=== PATIENT | male | born 1990 | race Caucasian/White ===

== ENCOUNTER 2016-07-14 11:14 | Emergency (ER) | payer OTHER ==
--- NOTE | 2016-07-14 12:23 | DIAGNOSTIC IMAGING REPORT ---
PROCEDURE: XR FOREARM - RIGHT INDICATION: FOREIGN BODY TECHNIQUE: Two views of the right forearm. COMPARISON: None. FINDINGS: 12 ml linear foreign body in the mid forearm posteromedially. Bones are unremarkable. IMPRESSION: 1. Right mid forearm foreign body
--- NOTE | 2016-07-14 12:56 | ED CLINICAL REPORT ---
Clinical Report - Physicians/Mid Levels [facility] [address] [place] [address] 07/14/2016 11:17 [id number] Time Seen: 11:40. Arrived- By private vehicle. Historian- patient. HISTORY OF PRESENT ILLNESS Chief Complaint: Injury to right forearm. The injury happened just prior to arrival. Occurred at work. The patient sustained a puncture wound from glass. Patient is experiencing mild pain. No other injury. REVIEW OF SYSTEMS A single glass foreign body is suspected in the right forearm. No swelling, tingling, numbness, weakness or chills. No fever, sweats, calf pain, chest pain or cough. No difficulty breathing, pedal edema, palpitations, abdominal pain or constipation. No diarrhea, nausea, vomiting or urinary problems. All systems otherwise negative, except as recorded above. PAST HISTORY Tetanus immunization status is up-to-date. SOCIAL HISTORY Current every day light tobacco smoker (cigarette)- less than 1/2 a pack per day. Occasional alcohol use. History of occasional drug use: marijuana. FAMILY HISTORY No significant family medical history. ADDITIONAL NOTES The nursing notes have been reviewed. PHYSICAL EXAM Vital Signs: 07/14/2016 11:29 BP: 125/80. HR: 73. RR: 20. O2 saturation: 100%. Temp: 98.5 F. Pain level now: 1/10. Have been reviewed. Head: Head atraumatic. Eyes: Pupils equal, round and reactive to light. ENT: Pharynx normal. Neck: Neck supple. CVS: Heart sounds normal. Respiratory: Breath sounds normal. Abdomen: No visible injury. Back: Normal inspection. Skin: Skin warm and dry. Extremities: Right forearm: single puncture wound and suspected foreign body located in the mid ulnar aspect of forearm. Neurovascular intact distally. Extremities otherwise negative. Neuro, Vascular and Tendons: Vascular status intact. Sensation intact. Motor intact. Tendon function intact. Neuro: No motor deficit. No sensory deficit. LABS, X-RAYS, AND EKG Rt Forearm X-ray: (PROCEDURE: XR FOREARM - RIGHT INDICATION: FOREIGN BODY TECHNIQUE: Two views of the right forearm. COMPARISON: None. FINDINGS: 12 ml linear foreign body in the mid forearm posteromedially. Bones are unremarkable. IMPRESSION: 1. Right mid forearm foreign body). The X-rays were interpreted by the radiologist and contemporaneously by me. PROGRESS AND PROCEDURES Course of Care: Patient is stable. Consult obtained from orthopedics. Dr Cristin maynard suggests that the patient be treated with a single dose of Ceftriaxone. Case discussed. Phone consult only. Patient/family counseled. Old medical records ordered. Other: (L&I form completed). Disposition: Discharged. Condition: stable. CLINICAL IMPRESSION Single deep puncture wound to the right forearm. Retained superficial glass soft tissue foreign body to the right forearm. INSTRUCTIONS Protect wound and keep wound area clean. You may wash wounds briefly, then dry. Apply neosporin twice daily. Do not work until released. Warnings: COMPLICATIONS: Complications from this condition include: possible infection, possible foreign body remaining in the wound, possible injury to a nerve, possible injury to a tendon and possible injury to a ligament. Future problems may include infection, scarring, loss of function, pain and deformity. INFECTION: Watch for signs of infection (increasing heat and redness, pus-like drainage, swelling, or increased pain). Return or see your doctor if these signs occur. GENERAL WARNINGS: Return or contact your physician immediately if your condition worsens or changes unexpectedly, if not improving as expected, or if other problems arise. Understanding of the discharge instructions verbalized by patient. [facility] , [address] [facility] [address] Follow up Sunday in three days. Call for an appointment. (Electronically signed by Vicente Whelan MD 07/14/2016 21:11)
--- NOTE | 2016-07-14 12:56 | ED NURSING NOTES ---
Clinical Report - Nurses [facility] [address] [place] [address] 07/14/2016 11:17 Patient: CARLOS ENRIQUE OAKES TRIAGE Triage time 11:29. Acuity: LEVEL 3. Chief Complaint: INJURY TO THE RIGHT FOREARM. Alert. No acute distress. SEPSIS SCREEN: Sepsis Screen: negative. Negative (no infection suspected/documented). KEYON COMA SCORE: [place] Coma Scale: 11; best verbal response- oriented x 4 (5); best motor response- obeys commands (6). --11:33 Deepti Martinez R.N. 11:29 07/14/16. BP: 125/80. HR: 73. RR: 20. O2 saturation: 100%. Temp: 98.5 F (oral). Pain level now: 03/21. --11:33 Deepti Martinez R.N. 11:29 07/14/16. BP: 125/80. HR: 73. RR: 20. O2 saturation: 100%. Temp: 98.5 F (oral). Pain level now: 03/21. --11:33 Deepti Martinez R.N. Weight: 81.6 kg stated. Height/Length: 72 inches Per Patient. BMI: 24.4. --11:32 Deepti Martinez R.N. Medications None. --11:30 Deepti Martinez R.N. Medication/allergy information source: the patient. --11:33 Deepti Martinez R.N. Allergies None. --11:31 Deepti Martinez R.N. History Arrived by private vehicle. Historian: patient. No primary care physician. This occurred just prior to arrival. Occurred at work. Mechanism of injury: (piece of windshield shard in forearm). 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 PAST MEDICAL HX: Tetanus status: up-to-date. SOCIAL HX: Light tobacco smoker (cigarette)- less than 1/2 a pack per day. Occasional alcohol use. History of drug use: marijuana. Recently used drugs yesterday. FALL RISK ASSESSMENT: Fall risk assessment completed. No fall risk identified. NUTRITIONAL RISK ASSESSMENT: The nutritional risk assessment revealed no deficiencies. FUNCTIONAL ASSESSMENT: Functional assessment: no impairments noted. LEARNING NEEDS ASSESSMENT: The learning needs assessment revealed no barriers. SKIN INTEGRITY ASSESSMENT: Skin integrity risk assessment completed. No skin integrity risk identified. --11:33 Deepti Martinez R.N. Interventions ID band on patient. To room. --11:33 Deepti Martinez R.N. PHYSICAL ASSESSMENT Ambulatory to room. GENERAL / NEURO / PSYCH: Oriented X 4. Alert. Appears in no acute distress. Appears anxious. EXTREMITIES: Capillary refill is less than 2 seconds in the extremities. Extremity pulses are within normal limits. Extremities exhibit normal ROM. Neuro-vascular status intact to the extremity. Right forearm: visualized foreign body. SKIN: Skin is warm and dry. ( piece of glass in forearm.). --11:34 Deepti Martinez R.N. NURSING PROGRESS NOTES Extremity elevated. Two patient identifiers checked. Call light placed in reach. Side rails up x 1. Bed placed in lowest position. Brakes of bed on. Patient ready for evaluation. --11:34 Deepti Martinez R.N. 12:38 07/14/2016 Ceftriaxone IM 1 gm given. Given in the right gluteus mely. --12:38 Deepti Martinez R.N. DISPOSITION / DISCHARGE 13:41 07/14/16. Condition at departure: unchanged. No learning barriers present. Discharge instructions provided and reviewed with the patient. Reviewed medication(s). Patient verbalized understanding. Written instructions provided in [place]adian. The patient was discharged home. He left the Emergency Department ambulatory and via private vehicle. Patient driving. Medication list reviewed and validated. --13:41 Deepti Martinez R.N. 13:38 07/14/16. BP: 138/66 taken on the left arm, while sitting. HR: 60. RR: 18. O2 saturation: 100%. Temp: deferred. Pain level now: 03/21. 11:29 07/14/16. BP: 125/80. HR: 73. RR: 20. O2 saturation: 100%. Temp: 98.5 F (oral). Pain level now: 03/21. --13:41 Deepti Martinez R.N. Departure time: 1340. --13:41 Deepti Martinez R.N. Locked/Released at 07/14/2016 13:49 by Deepti Martinez R.N.
--- NOTE | 2016-07-14 12:56 | ED NURSING NOTES ---
Clinical Report - Nurses [facility] [address] [place] [address] 07/14/2016 11:17 Patient: CARLOS ENRIQUE OAKES TRIAGE Triage time 11:29. Acuity: LEVEL 3. Chief Complaint: INJURY TO THE RIGHT FOREARM. Alert. No acute distress. SEPSIS SCREEN: Sepsis Screen: negative. Negative (no infection suspected/documented). KEYON COMA SCORE: [place] Coma Scale: 11; best verbal response- oriented x 4 (5); best motor response- obeys commands (6). --11:33 Deepti Martinez R.N. 11:29 07/14/16. BP: 125/80. HR: 73. RR: 20. O2 saturation: 100%. Temp: 98.5 F (oral). Pain level now: 03/21. --11:33 Deepti Martinez R.N. 11:29 07/14/16. BP: 125/80. HR: 73. RR: 20. O2 saturation: 100%. Temp: 98.5 F (oral). Pain level now: 03/21. --11:33 Deepti Martinez R.N. Weight: 81.6 kg stated. Height/Length: 72 inches Per Patient. BMI: 24.4. --11:32 Deepti Martinez R.N. Medications None. --11:30 Deepti Martinez R.N. Medication/allergy information source: the patient. --11:33 Deepti Martinez R.N. Allergies None. --11:31 Deepti Martinez R.N. History Arrived by private vehicle. Historian: patient. No primary care physician. This occurred just prior to arrival. Occurred at work. Mechanism of injury: (piece of windshield shard in forearm). 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 PAST MEDICAL HX: Tetanus status: up-to-date. SOCIAL HX: Light tobacco smoker (cigarette)- less than 1/2 a pack per day. Occasional alcohol use. History of drug use: marijuana. Recently used drugs yesterday. FALL RISK ASSESSMENT: Fall risk assessment completed. No fall risk identified. NUTRITIONAL RISK ASSESSMENT: The nutritional risk assessment revealed no deficiencies. FUNCTIONAL ASSESSMENT: Functional assessment: no impairments noted. LEARNING NEEDS ASSESSMENT: The learning needs assessment revealed no barriers. SKIN INTEGRITY ASSESSMENT: Skin integrity risk assessment completed. No skin integrity risk identified. --11:33 Deepti Martinez R.N. Interventions ID band on patient. To room. --11:33 Deepti Martinez R.N. PHYSICAL ASSESSMENT Ambulatory to room. GENERAL / NEURO / PSYCH: Oriented X 4. Alert. Appears in no acute distress. Appears anxious. EXTREMITIES: Capillary refill is less than 2 seconds in the extremities. Extremity pulses are within normal limits. Extremities exhibit normal ROM. Neuro-vascular status intact to the extremity. Right forearm: visualized foreign body. SKIN: Skin is warm and dry. ( piece of glass in forearm.). --11:34 Deepti Martinez R.N. NURSING PROGRESS NOTES Extremity elevated. Two patient identifiers checked. Call light placed in reach. Side rails up x 1. Bed placed in lowest position. Brakes of bed on. Patient ready for evaluation. --11:34 Deepti Martinez R.N. 12:38 07/14/2016 Ceftriaxone IM 1 gm given. Given in the right gluteus mely. --12:38 Deepti Martinez R.N. DISPOSITION / DISCHARGE 13:41 07/14/16. Condition at departure: unchanged. No learning barriers present. Discharge instructions provided and reviewed with the patient. Reviewed medication(s). Patient verbalized understanding. Written instructions provided in [place]. The patient was discharged home. He left the Emergency Department ambulatory and via private vehicle. Patient driving. Medication list reviewed and validated. --13:41 Deepti Martinez R.N. 13:38 07/14/16. BP: 138/66 taken on the left arm, while sitting. HR: 60. RR: 18. O2 saturation: 100%. Temp: deferred. Pain level now: 03/21. 11:29 07/14/16. BP: 125/80. HR: 73. RR: 20. O2 saturation: 100%. Temp: 98.5 F (oral). Pain level now: 03/21. --13:41 Deepti Martinez R.N. Departure time: 1340. --13:41 Deepti Martinez R.N. Locked/Released at 07/14/2016 13:49 by Deepti Martinez R.N.
--- NOTE | 2016-07-14 12:56 | ED ORDER SUMMARY ---
..... Patient: CARLOS ENRIQUE OAKES OrderSheet [facility] VisitID: [id number] [place] [address] 26y, M Registration Date/Time: 07/14/2016 ORDER SHEET Weight: 81.6 kg (stated) Allergies: None GENERAL ORDERS: Forearm Right Urgent (11:41 07/14/2016 Fred BRAUN) (Ack 11:46 Cora) (13:49 SRoberts R.N.) MEDICATION ORDERS: Ceftriaxone IM 1 gm (NOW) (12:22 07/14/2016 Fred BRAUN) (Ack 12:29 SRoberts R.N.) (12:38 SRoberts R.N.) IV FLUIDS: ORDER SHEET NOTES: [Electronically signed by Deepti Martinez R.N. (13:49 07/14/2016)] [Electronically signed by Vicente Whelan MD (21:11 07/14/2016)] [Electronically locked/signed by Deepti Martinez R.N. (13:49 07/14/2016)]
--- NOTE | 2016-07-14 12:56 | ED CLINICAL REPORT ---
Clinical Report - Physicians/Mid Levels [facility] [address] [place] [address] 07/14/2016 11:17 [id number] Time Seen: 11:40. Arrived- By private vehicle. Historian- patient. HISTORY OF PRESENT ILLNESS Chief Complaint: Injury to right forearm. The injury happened just prior to arrival. Occurred at work. The patient sustained a puncture wound from glass. Patient is experiencing mild pain. No other injury. REVIEW OF SYSTEMS A single glass foreign body is suspected in the right forearm. No swelling, tingling, numbness, weakness or chills. No fever, sweats, calf pain, chest pain or cough. No difficulty breathing, pedal edema, palpitations, abdominal pain or constipation. No diarrhea, nausea, vomiting or urinary problems. All systems otherwise negative, except as recorded above. PAST HISTORY Tetanus immunization status is up-to-date. SOCIAL HISTORY Current every day light tobacco smoker (cigarette)- less than 1/2 a pack per day. Occasional alcohol use. History of occasional drug use: marijuana. FAMILY HISTORY No significant family medical history. ADDITIONAL NOTES The nursing notes have been reviewed. PHYSICAL EXAM Vital Signs: 07/14/2016 11:29 BP: 125/80. HR: 73. RR: 20. O2 saturation: 100%. Temp: 98.5 F. Pain level now: 1/10. Have been reviewed. Head: Head atraumatic. Eyes: Pupils equal, round and reactive to light. ENT: Pharynx normal. Neck: Neck supple. CVS: Heart sounds normal. Respiratory: Breath sounds normal. Abdomen: No visible injury. Back: Normal inspection. Skin: Skin warm and dry. Extremities: Right forearm: single puncture wound and suspected foreign body located in the mid ulnar aspect of forearm. Neurovascular intact distally. Extremities otherwise negative. Neuro, Vascular and Tendons: Vascular status intact. Sensation intact. Motor intact. Tendon function intact. Neuro: No motor deficit. No sensory deficit. LABS, X-RAYS, AND EKG Rt Forearm X-ray: (PROCEDURE: XR FOREARM - RIGHT INDICATION: FOREIGN BODY TECHNIQUE: Two views of the right forearm. COMPARISON: None. FINDINGS: 12 ml linear foreign body in the mid forearm posteromedially. Bones are unremarkable. IMPRESSION: 1. Right mid forearm foreign body). The X-rays were interpreted by the radiologist and contemporaneously by me. PROGRESS AND PROCEDURES Course of Care: Patient is stable. Consult obtained from orthopedics. Dr Cristin maynard suggests that the patient be treated with a single dose of Ceftriaxone. Case discussed. Phone consult only. Patient/family counseled. Old medical records ordered. Other: (L&I form completed). Disposition: Discharged. Condition: stable. CLINICAL IMPRESSION Single deep puncture wound to the right forearm. Retained superficial glass soft tissue foreign body to the right forearm. INSTRUCTIONS Protect wound and keep wound area clean. You may wash wounds briefly, then dry. Apply neosporin twice daily. Do not work until released. Warnings: COMPLICATIONS: Complications from this condition include: possible infection, possible foreign body remaining in the wound, possible injury to a nerve, possible injury to a tendon and possible injury to a ligament. Future problems may include infection, scarring, loss of function, pain and deformity. INFECTION: Watch for signs of infection (increasing heat and redness, pus-like drainage, swelling, or increased pain). Return or see your doctor if these signs occur. GENERAL WARNINGS: Return or contact your physician immediately if your condition worsens or changes unexpectedly, if not improving as expected, or if other problems arise. Understanding of the discharge instructions verbalized by patient. [facility] , [address] [facility] [address] Follow up Sunday in three days. Call for an appointment. (Electronically signed by Vicente Whelan MD 07/14/2016 21:11)
--- NOTE | 2016-07-14 12:56 | ED ORDER SUMMARY ---
..... Patient: CARLOS ENRIQUE OAKES OrderSheet [facility] VisitID: [id number] [place] [address] 26y, M Registration Date/Time: 07/14/2016 ORDER SHEET Weight: 81.6 kg (stated) Allergies: None GENERAL ORDERS: Forearm Right Urgent (11:41 07/14/2016 Fred BRAUN) (Ack 11:46 Cora) (13:49 SRoberts R.N.) MEDICATION ORDERS: Ceftriaxone IM 1 gm (NOW) (12:22 07/14/2016 Fred BRAUN) (Ack 12:29 SRoberts R.N.) (12:38 SRoberts R.N.) IV FLUIDS: ORDER SHEET NOTES: [Electronically signed by Deepti Martinez R.N. (13:49 07/14/2016)] [Electronically signed by Vicente Whelan MD (21:11 07/14/2016)] [Electronically locked/signed by Deepti Martinez R.N. (13:49 07/14/2016)]
--- NOTE | 2016-07-14 21:11 | ED MED RECONCILIATION SUMMARY ---
Patient: CARLOS ENRIQUE OAKES Medication Reconciliation Report [facility] VisitID: [id number] [address] [place] [address] 26y, M Registration Date/Time: 07/14/2016 Weight: 81.6 kg Height/Length: 72 in. BMI: 24.4 ALLERGIES: None The patient's Home Medications are listed below: NONE. The source(s) of the original Home Medication information: patient The following Medications were given to the patient in the Emergency Department: Ceftriaxone [IM] IM 1 gm, administered: 07/14/2016 12:38:00 PM The following Medications were prescribed to the patient: None.
--- NOTE | 2016-07-14 21:11 | ED MAR SUMMARY ---
..... Medication Administration Record [facility] [address] [place] [address] Patient: CARLOS ENIRQUE OAKES Visit ID: [id number] 26y, M Weight: 81.6 kg Height/Length: 72 in BMI: 24.4 ALLERGIES: None Given 12:38 07/14/2016 Deepti Martinez R.N. Medication Administered: CEFTRIAXONE [IM], Dose: 1 gm IM. Medication Ordered: Ceftriaxone IM 1 gm (NOW).
--- NOTE | 2016-07-14 21:11 | ED MED RECONCILIATION SUMMARY ---
Patient: CARLOS ENRIQUE OAKES Medication Reconciliation Report [facility] VisitID: [id number] [address] [place] [address] 26y, M Registration Date/Time: 07/14/2016 Weight: 81.6 kg Height/Length: 72 in. BMI: 24.4 ALLERGIES: None The patient's Home Medications are listed below: NONE. The source(s) of the original Home Medication information: patient The following Medications were given to the patient in the Emergency Department: Ceftriaxone [IM] IM 1 gm, administered: 07/14/2016 12:38:00 PM The following Medications were prescribed to the patient: None.
--- NOTE | 2016-07-14 21:11 | ED MAR SUMMARY ---
..... Medication Administration Record [facility] [address] [place] [address] Patient: CARLOS ENRIQUE OAKES Visit ID: [id number] 26y, M Weight: 81.6 kg Height/Length: 72 in BMI: 24.4 ALLERGIES: None Given 12:38 07/14/2016 Deepti Martinez R.N. Medication Administered: CEFTRIAXONE [IM], Dose: 1 gm IM. Medication Ordered: Ceftriaxone IM 1 gm (NOW).
--- NOTE | 2016-07-14 21:11 | ED DISCHARGE INSTRUCTIONS ---
Patient: CARLOS ENRIQUE OAKES General Instructions [facility] VisitID: [id number] [address] [place] [address] 26y, M Registration Date/Time: 07/14/2016 Single deep puncture wound to the right forearm. Retained superficial glass soft tissue foreign body to the right forearm. INSTRUCTIONS Protect wound and keep wound area clean. You may wash wounds briefly, then dry. Apply neosporin twice daily. Do not work until released. Warnings: COMPLICATIONS: Complications from this condition include: possible infection, possible foreign body remaining in the wound, possible injury to a nerve, possible injury to a tendon and possible injury to a ligament. Future problems may include infection, scarring, loss of function, pain and deformity. INFECTION: Watch for signs of infection (increasing heat and redness, pus-like drainage, swelling, or increased pain). Return or see your doctor if these signs occur. GENERAL WARNINGS: Return or contact your physician immediately if your condition worsens or changes unexpectedly, if not improving as expected, or if other problems arise. Understanding of the discharge instructions verbalized by patient. Follow-up with: [facility], , [address], , [place], [id number] Follow up Sunday in three days. Call for an appointment. ADDITIONAL INFORMATION Puncture Wound (General) A puncture wound is a hole through the skin. Bacteria, dirt and debris can be drawn into this wound, increasing the risk of infection. However, antibiotics are usually not prescribed for this injury unless signs of infection are already present. Therefore, it is important to observe the wound closely for the signs of infection listed below. Home Care: If your wound is on an arm, hand, leg, or foot, keep that part raised during the first 48 hours to reduce swelling and pain. Keep the wound clean and dry. If a bandage was applied and it becomes wet or dirty, replace it. Otherwise, leave it in place for the next 24 hours. You may use acetaminophen (Tylenol) or ibuprofen (Motrin, Advil) to control pain, unless another medicine was prescribed. [NOTE: If you have chronic liver or kidney disease or ever had a stomach ulcer or GI bleeding, talk with your doctor before using these medicines.] You may shower as usual. However, do not soak the area in water (no baths or swimming) during the first 48 hours. Follow Up: Most puncture wounds heal within 10 days. However, an infection may sometimes occur despite proper treatment. If small particles were drawn into the puncture wound (such as fragments of cloth, rubber, wood or dirt), an infection may occur. These fragments are very hard to find during the first exam since it is not possible to get a good look inside a puncture wound and they do not show on an X-ray. Antibiotics and a minor surgical procedure to find and remove the foreign object will be needed if this happens. Therefore, check the wound daily for the warning signs listed below. Get Prompt Medical Attention if any of the following occur: SIGNS OF INFECTION: Increasing pain in the wound Redness, swelling, pus or red lines coming from the wound Fever of 100.4F (38C) or higher, or as directed by your healthcare provider Foreign ObjectUnder The Skin, Not Removed You may have a particle under your skin whichcould notbe found. Very small particles that remain under the skin usually cause no problem and need no further treatment. Sometimes they work their way to the surface on their own. If you see this happening, you can remove any particles with a tweezers. Home care The following guidelines will help you care for your wound at home: Keep the wound clean and dry. If a bandage was applied and it becomes wet or dirty, replace it. Otherwise, leave it in place for the first 24 hours, then change it once a day or as directed. If sutures were used, clean the wound daily: After removing the bandage, wash the area with soap and water. After cleaning, apply a thin layer of antibiotic ointment. This will keep the wound clean and make it easier to remove the stitches. Reapply the bandage. You may shower as usual after the first 24 hours, but do not soak the area in water (no baths or swimming) until the sutures are removed. If a surgical tape closure was used, keep the area clean and dry. If it becomes wet, blot it dry with a towel. You may use acetaminophen or ibuprofen to control pain, unless another pain medicine was prescribed.If you have chronic liver or kidney disease or ever had a stomach ulcer or GI bleeding, talk with your doctor before using these medicines. Follow-up care Follow up with your health care provider as directed. Most skin wounds heal within ten days. However, there is an increased risk of infection if there is any particle remaining under the skin. Therefore, check the wound daily for the signs listed below. Stitches should be removed within 714 days. If surgical tape closures were used, remove them after seven days, unless told otherwise. Note:Any X-rays will be reviewed by a radiologist. You will be notified if there are any new findings that may affect your care. When to seek medical care Get prompt medical attention if any of the following occur: Increasing pain in the wound Redness, swelling or pus coming from the wound Fever of 100.4F (38C) or higher, or as directed by your health care provider Puncture Wound (General) A puncture wound is a hole through the skin. Bacteria, dirt and debris can be drawn into this wound, increasing the risk of infection. However, antibiotics are usually not prescribed for this injury unless signs of infection are already present. Therefore, it is important to observe the wound closely for the signs of infection listed below. Home Care: If your wound is on an arm, hand, leg, or foot, keep that part raised during the first 48 hours to reduce swelling and pain. Keep the wound clean and dry. If a bandage was applied and it becomes wet or dirty, replace it. Otherwise, leave it in place for the next 24 hours. You may use acetaminophen (Tylenol) or ibuprofen (Motrin, Advil) to control pain, unless another medicine was prescribed. [NOTE: If you have chronic liver or kidney disease or ever had a stomach ulcer or GI bleeding, talk with your doctor before using these medicines.] You may shower as usual. However, do not soak the area in water (no baths or swimming) during the first 48 hours. Follow Up: Most puncture wounds heal within 10 days. However, an infection may sometimes occur despite proper treatment. If small particles were drawn into the puncture wound (such as fragments of cloth, rubber, wood or dirt), an infection may occur. These fragments are very hard to find during the first exam since it is not possible to get a good look inside a puncture wound and they do not show on an X-ray. Antibiotics and a minor surgical procedure to find and remove the foreign object will be needed if this happens. Therefore, check the wound daily for the warning signs listed below. Get Prompt Medical Attention if any of the following occur: SIGNS OF INFECTION: Increasing pain in the wound Redness, swelling, pus or red lines coming from the wound Fever of 100.4F (38C) or higher, or as directed by your healthcare provider You have been given the following additional information: Puncture Wound, General Foreign Body, Soft Tissue [Not Removed] Puncture Wound, General Do not work until released. (Electronically signed by Vicente Whelan MD 07/14/2016 21:11)
== END 2016-07-14 13:40 | disposition home or self-care (01) ==
LOC: ED SRH 11:14
DX: S51.841A Puncture wound with foreign body of right forearm, initial encounter (principal); W25.XXXA Contact with sharp glass, initial encounter; Y93.9 Activity, unspecified; Y92.9 Unspecified place or not applicable; Y99.0 Civilian activity done for income or pay; F17.210 Nicotine dependence, cigarettes, uncomplicated